=== PATIENT | female | born 1980 | race Caucasian/White ===

== ENCOUNTER 2017-04-05 11:55 | Emergency (ER) | payer MEDICAID ==
[2017-04-05 12:24] LABS: % BASOPHILS 0.9 % (0.0-2.0); % EOSINOPHILS 1.5 % (0.0-5.0); % LYMPHOCYTES 25.3 % (20.0-50.0); % NEUTROPHILS 66.3 % (40.0-80.0); BASOPHILE ABSOLUTE 0.1 Th/cumm (0-0.2); EOSINOPHILE ABSOLUTE 0.1 Th/cmm (0.1-0.4); HEMATOCRIT 33.7 % (41.0-60); LYMPHOCYTE ABSOLUTE 1.9 Th/cmm (1.5-3.0); MEAN CELL VOLUME 72.5 fl (81-100); MEAN CORPUSCULAR HEMOGLOBIN 23.8 pg (27.0-31.0); MEAN CORPUSCULAR HGB CONC 32.8 pg (28.0-36.0); MEAN PLATELET VOLUME 7.9 fl; MONOCYTE ABSOLUTE 0.4 Th/cmm (0.3-1.0); RED BLOOD COUNT 4.65 Mil/cmm (3.80-5.10); RED CELL DISTRIBUTION WIDTH 17.7 % (11.5-20.0)
[2017-04-05 12:25] LABS: PLATELET COUNT 415 Th/cmm (150-400); WHITE BLOOD COUNT 7.5 Th/cmm (4.8-10.8)
[2017-04-05] MEDS ORDERED: Triple Antibiotic 0.94 gm Pkt TP ONE (12:36)
[2017-04-05 12:40] LABS: INR 0.95 (0.5-1.4); PROTHROMBIN TIME (TEST) 9.9 SECONDS (9.5-11.5)
[2017-04-05 12:42] LABS: ANION GAP 10.5 (7.0-16.0); BUN - UREA NITROGEN 9 mg/dL (7-25); CALCIUM SERUM 9.1 mg/dL (8.6-10.3); CARBON DIOXIDE 25.1 mEq/L (21.0-31.0); CHLORIDE 102 mEq/L (98-107); CREATININE - SERUM 0.6 mg/dL (0.6-1.2); GFR AFRICAN-AMERICAN > 60.0 ml/min (>90); GFR NON AFRICAN-AMERICAN > 60.0 ml/min; GLUCOSE 118 mg/dL (70-105); POTASSIUM SERUM 3.6 mEq/L (3.5-5.1); SODIUM SERUM 134 mEq/L (136-145)
[2017-04-05] MEDS ORDERED: Triple Antibiotic 0.94 gm Pkt TP STA (12:45)
--- NOTE | 2017-04-05 13:47 | Diagnostic Imaging Report ---
Right thumb (3 views) HISTORY: Pain, trauma No acute bony abnormalities are seen. No fractures. Joint spaces appear normal. 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 IMPRESSION: 1. No acute abnormalities. In the presence of recent trauma and persistent symptoms, a repeat radiograph in 5-7 days may be helpful for detection of a subtle or occult fracture.
--- NOTE | 2017-04-05 17:11 | ER Physician Documentation ---
DATE OF SERVICE: 04/05/2017 HISTORY OF PRESENT ILLNESS: The patient said that two days ago her finger caught into the door of their car, expedition car and she thought she would get better, but it did not get better. She still has pain in that right thumb. This right thumb is becoming dark and black and looks like there is blood underneath the nail and to rule out a fracture, an x-ray of the thumb has been ordered. Other than that, the patient has no significant complaint. 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 She had two surgeries, first surgery was to save the finger, but it could not be saved, but requiring a second surgery. Otherwise, the patient has no other complaints. FAMILY HISTORY: Benign and negative. PERSONAL HISTORY: , 3 children. ALLERGIES: None known. CURRENT MEDICATIONS: Not taking any medication. REVIEW OF SYSTEMS: Twelve point review of system is essentially benign and negative. CARDIOLOGY: No history of any chest pain, myocardial infarction, rheumatic fever, valvular heart disease, pericardial disease. BONES AND JOINTS: No apparent complaints other than the ones described earlier. GENITOURINARY: No burning, frequency, dysuria. BRAIN: No history of any head injury, trauma, accidents in the brain or any epilepsy. PULMONARY: No pneumonia, no TB, no pulmonary embolism, COPD, emphysema, bronchitis. EYES: No history of double vision, blurring, blindness. ENT: No history of ear discharge. CENTRAL NERVOUS SYSTEMS: Otherwise no history of any seizure activities, etc. NECK: No history of any tumors in the neck. GASTROENTEROLOGY: No history of any hemorrhoids, GERD, peptic ulcer disease. No history of any diarrhea, constipation, Crohn's disease, Ethan syndrome. HEMATOLOGY/ONCOLOGY: No history of any cancer, etc. All other systems essentially benign and negative. PAST SURGICAL HISTORY: Right fourth digit is absent and the right thumb has swelling and pain and on bending, it is painful; however, there is any underlying fracture or not is not very sure. Chances are good that there might be some crack or it is just a silent crush injury with subungual hemorrhage. If there is no fracture, perhaps I might have to put a needle in the subungual area after heating the needle and removing the blood, perhaps that will relieve the pain and then we will apply the dressing. PHYSICAL EXAMINATION: VITAL SIGNS: Temperature is 97.4, pulse is 84, respirations 16, blood pressure 138/81, oxygen saturation 99 degree Fahrenheit, height 5 feet, weight 145 pounds. Last menstrual period 3 weeks. GENERAL: The patient appears to be awake, alert, oriented. General exam is benign and negative. No edema, no cyanosis, no petechia, ecchymosis. CHEST: Clear, trachea being central. Fairly good air entry in both lungs without any rales, rhonchi, or bronchial breathing. ABDOMEN: Soft, benign and a negative. Liver and spleen not enlarged. No free fluid in abdominal cavity. CENTRAL NERVOUS SYSTEM: Within normal limits. CLINICAL IMPRESSION: This patient has crush injury into the right thumb. We will need to rule out if there is any fracture or not. If there is fracture, we might have to send her to an orthopedic doctor for further treatment. If there is no fracture, then perhaps the patient might need a needle in the subungual space and dressing and antibiotics, etc. WORKING DIAGNOSES: 1. Crush injury to the right thumb. 2. Fourth digit on the right thumb is amputated. 3. Mild obesity is present. JOB# [id number]
== END 2017-04-05 13:26 | disposition home or self-care (01) ==
LOC: ER 11:55
DX: S67.01XA Crushing injury of right thumb, initial encounter (principal); E66.9 Obesity, unspecified; Z68.28 Body mass index [BMI] 28.0-28.9, adult; X58.XXXA Exposure to other specified factors, initial encounter; Y93.89 Activity, other specified; Y92.89 Other specified places as the place of occurrence of the external cause; Y99.8 Other external cause status
CPT/HCPCS: 36415-UA; 73140-TC-F5; 80048-TC; 81025-TC; 85025-TC; 85610-TC